=== PATIENT | male | born 1960 | race Caucasian/White ===

== ENCOUNTER 2020-05-13 13:35 | Day surgery (SDC) | payer BC ==
[~2020-05-13 13:35] MED LIST: DIPRIVAN 200 MG/20 ML IV ONE; Ketamine HCl 50 MG/ML ONE
[2020-05-13] MEDS ORDERED: Depo-Medrol 40 MG/ML IM ONE (13:36)
[2020-05-13] MEDS ORDERED: Marcaine 0.5% SDV 10 ML IJ ONE (13:36)
--- NOTE | 2020-05-13 16:23 | XRAY ---
Indication: Right SI joint injection. Intraoperative fluoroscopy was provided for 9 seconds. 2 digital spot images submitted for interpretation demonstrates posterior needle tip projecting over the inferior right SI joint. Correlate with intraoperative findings/report.
[2020-05-13] MEDS ORDERED: Lactated Ringers 1,000 ML IV ONE (16:38)
--- NOTE | 2020-05-13 16:39 | XRAY ---
9 seconds fluoroscopy time in surgery for right SI joint injection.
== END 2020-05-13 15:11 | disposition home or self-care (01) ==
LOC: SDC-PAIN 13:35
PROVIDERS: ATTEND Psychiatry & Neurology Pain Medicine
DX: M46.1 Sacroiliitis, not elsewhere classified (principal); I10 Essential (primary) hypertension; G47.30 Sleep apnea, unspecified; Z79.899 Other long term (current) drug therapy
CPT/HCPCS: 64451; 72020; 77002; J1030; J2704

== ENCOUNTER 2020-10-28 10:49 | Day surgery (SDC) | payer BC ==
[2020-10-28] MEDS ORDERED: LIDOCAINE HCL 2% 100 MG/5 ML IJ ONE (10:50)
[2020-10-28] MEDS ORDERED: Depo-Medrol 40 MG/ML IM ONE (10:50)
[2020-10-28] MEDS ORDERED: Ketamine HCl 50 MG/ML ONE (11:47)
[2020-10-28] MEDS ORDERED: DIPRIVAN 200 MG/20 ML IV ONE (11:47)
--- NOTE | 2020-10-28 12:59 | XRAY ---
Indication: Bilateral L4-S1 MBB. Intraoperative fluoroscopy was provided for 11 seconds. Single digital spot image submitted for interpretation demonstrates posterior needle tips projecting over the expected left and right L4-S1 nerve roots. Correlate with intraoperative findings/report.
--- NOTE | 2020-10-28 13:01 | XRAY ---
11 seconds fluoroscopy rime in surgery for bilateral L4-S1 MBB.
[2020-10-28] MEDS ORDERED: Lactated Ringers 1,000 ML IV ONE (16:05)
== END 2020-10-28 12:16 | disposition home or self-care (01) ==
LOC: SDC-PAIN 10:49
PROVIDERS: ATTEND Psychiatry & Neurology Pain Medicine
DX: M47.816 Spondylosis without myelopathy or radiculopathy, lumbar region (principal); I10 Essential (primary) hypertension; G47.30 Sleep apnea, unspecified; Z79.899 Other long term (current) drug therapy
CPT/HCPCS: 64493; 64494; 72020; 77002; J1030; J2704

== ENCOUNTER 2020-12-30 07:34 | Day surgery (SDC) | payer BC ==
[2020-12-30] MEDS ORDERED: Depo-Medrol 40 MG/ML IM ONE (07:35)
[2020-12-30] MEDS ORDERED: BUPIVACAINE 0.5% VIAL IJ ONE (07:35)
[2020-12-30] MEDS ORDERED: DIPRIVAN 200 MG/20 ML IV ONE (10:06)
[2020-12-30] MEDS ORDERED: Ketamine HCl 50 MG/ML ONE (10:06)
[2020-12-30] MEDS ORDERED: Lactated Ringers 1,000 ML IV ONE (11:00)
--- NOTE | 2020-12-30 11:45 | XRAY ---
Indication: Bilateral L4-S1 MBB. Intraoperative fluoroscopy provided for 37 seconds. Single digital spot image submitted for interpretation demonstrates posterior needle tips projecting over the expected left and right L4-S1 nerve roots. Correlate with intraoperative findings/report.
--- NOTE | 2020-12-30 11:49 | XRAY ---
37 seconds fluoroscopy time in surgery for bilateral L4-S1 MBB.
== END 2020-12-30 10:37 | disposition home or self-care (01) ==
LOC: SDC-PAIN 07:34
PROVIDERS: ATTEND Psychiatry & Neurology Pain Medicine
DX: M47.816 Spondylosis without myelopathy or radiculopathy, lumbar region (principal); I10 Essential (primary) hypertension; G47.30 Sleep apnea, unspecified; Z79.899 Other long term (current) drug therapy
CPT/HCPCS: 64493; 64494; 72020; 77002; 82947; J1030; J2704

== ENCOUNTER 2021-02-24 14:21 | Day surgery (SDC) | payer BC ==
[2021-02-24] MEDS ORDERED: Depo-Medrol 40 MG/ML IM ONE (14:22)
[2021-02-24] MEDS ORDERED: BUPIVACAINE 0.5% VIAL IJ ONE (14:22)
[2021-02-24] MEDS ORDERED: DIPRIVAN 200 MG/20 ML IV ONE (15:52)
[2021-02-24] MEDS ORDERED: Lactated Ringers 1,000 ML IV ONE (16:14)
--- NOTE | 2021-02-24 16:44 | XRAY ---
Indication: Right SI joint injection. Intraoperative fluoroscopy provided for 13 seconds. Single lateral digital spot image submitted for interpretation demonstrates posterior needle tip projecting mid sacral level. Correlate with intraoperative findings/report.
--- NOTE | 2021-02-24 16:48 | XRAY ---
13 seconds fluoroscopy time in surgery for injection of the right SI joint.
== END 2021-02-24 16:16 | disposition home or self-care (01) ==
LOC: SDC-PAIN 14:21
PROVIDERS: ATTEND Psychiatry & Neurology Pain Medicine
DX: M46.1 Sacroiliitis, not elsewhere classified (principal); I10 Essential (primary) hypertension; G47.30 Sleep apnea, unspecified; Z79.899 Other long term (current) drug therapy
CPT/HCPCS: 27096; 72202; 77002; J1030; J2704; G0260

== ENCOUNTER 2021-04-21 11:46 | Day surgery (SDC) | payer BC ==
[2021-04-21] MEDS ORDERED: Depo-Medrol 40 MG/ML IM ONE (11:47)
[2021-04-21] MEDS ORDERED: BUPIVACAINE 0.5% VIAL IJ ONE (11:47)
[2021-04-21] MEDS ORDERED: Xylocaine 1% Vial 30 ML PF IJ ONE (11:47)
[2021-04-21] MEDS ORDERED: DIPRIVAN 200 MG/20 ML IV ONE (13:35)
--- NOTE | 2021-04-21 14:15 | XRAY ---
Indication: Right L4-S1 RFA. Intraoperative fluoroscopy provided for 19 seconds. 3 digital spot image submitted for interpretation demonstrate posterior needle tips projecting over the expected right L4-S1 nerve roots. Correlate with intraoperative findings/report.
--- NOTE | 2021-04-21 15:12 | XRAY ---
19 seconds of fluoroscopy was used in surgery for a right L4-L5 and L5-S1 RFA.
[2021-04-21] MEDS ORDERED: Lactated Ringers 1,000 ML IV ONE (15:42)
== END 2021-04-21 14:06 | disposition home or self-care (01) ==
LOC: SDC-PAIN 11:46
PROVIDERS: ATTEND Psychiatry & Neurology Pain Medicine
DX: M47.816 Spondylosis without myelopathy or radiculopathy, lumbar region (principal); I10 Essential (primary) hypertension; G47.30 Sleep apnea, unspecified; F41.9 Anxiety disorder, unspecified; F32.9 Major depressive disorder, single episode, unspecified; M19.90 Unspecified osteoarthritis, unspecified site; Z79.899 Other long term (current) drug therapy
CPT/HCPCS: 64635; 64636; 72100; 77002; J1030; J2001; J2704

== ENCOUNTER 2022-05-11 15:14 | Day surgery (SDC) | payer BC ==
[2022-05-11] MEDS ORDERED: XYLOCAINE-MPF 1% 5ML SDV IJ ONE (15:15)
[2022-05-11] MEDS ORDERED: SYNVISC 16 MG/2 ML SYRINGE IU ONE (15:15)
--- NOTE | 2022-05-12 18:32 | XRAY ---
12 seconds of fluoroscopy was used in surgery for a right knee intra-articular injection.
--- NOTE | 2022-05-13 15:38 | XRAY ---
Indication: Right intra-articular knee injection. Intraoperative fluoroscopy provided for 12 seconds. Single spot image submitted for interpetation demonstrates needle tip projecting over the right intercondylar notch. Small amount of contrast injected for needle tip placement. Correlate with intraoperative findings/report.
== END 2022-05-11 17:05 | disposition home or self-care (01) ==
LOC: SDC-PAIN 15:14
PROVIDERS: ATTEND Psychiatry & Neurology Pain Medicine
DX: M17.11 Unilateral primary osteoarthritis, right knee (principal); Z79.899 Other long term (current) drug therapy
CPT/HCPCS: 20610; 73560; 77002; J7325; Q9966

== ENCOUNTER 2022-05-18 15:15 | Day surgery (SDC) | payer BC ==
[2022-05-18] MEDS ORDERED: XYLOCAINE-MPF 1% 5ML SDV IJ ONE (15:16)
[2022-05-18] MEDS ORDERED: SYNVISC 16 MG/2 ML SYRINGE IU ONE (15:16)
--- NOTE | 2022-05-18 19:57 | XRAY ---
Indication: Right knee injection. Intraoperative fluoroscopy provided for 5 seconds. Single digital spot image submitted for interpretation demonstrates needle tip projecting over the right femur intercondylar notch. Small amount of contrast injected for needle tip placement. Correlate with intraoperative findings/report.
--- NOTE | 2022-05-19 09:21 | XRAY ---
5 seconds of fluoroscopy was used in surgery for a right knee intra-articular injection.
== END 2022-05-18 18:05 | disposition home or self-care (01) ==
LOC: SDC-PAIN 15:15
PROVIDERS: ATTEND Psychiatry & Neurology Pain Medicine
DX: M17.11 Unilateral primary osteoarthritis, right knee (principal); Z79.899 Other long term (current) drug therapy
CPT/HCPCS: 20610; 73560; 77002; J7325; Q9966

== ENCOUNTER 2022-05-25 15:13 | Day surgery (SDC) | payer BC ==
[2022-05-25] MEDS ORDERED: SYNVISC 16 MG/2 ML SYRINGE IU ONE (15:14)
[2022-05-25] MEDS ORDERED: XYLOCAINE-MPF 1% 5ML SDV IJ ONE (15:14)
--- NOTE | 2022-05-25 20:15 | XRAY ---
Indication: Right knee injection. Intraoperative fluoroscopy provided for 9 seconds. Single digital spot image submitted for interpretation demonstrates needle tip projecting over the right femur intercondylar notch. Small amount of contrast injected for needle tip placement. Correlate with intraoperative findings/report.
--- NOTE | 2022-05-26 08:46 | XRAY ---
9 seconds of fluoroscopy was used in surgery for an intra-articular injection of the right knee.
== END 2022-05-25 17:30 | disposition home or self-care (01) ==
LOC: SDC-PAIN 15:13
PROVIDERS: ATTEND Psychiatry & Neurology Pain Medicine
DX: M17.11 Unilateral primary osteoarthritis, right knee (principal); Z79.899 Other long term (current) drug therapy
CPT/HCPCS: 20610; 73560; 77002; J7325; Q9966

== ENCOUNTER 2023-07-03 08:49 | Day surgery (SDC) | payer OTHER ==
[~2023-07-03 08:49] MED LIST changes: -DIPRIVAN 200 MG/20 ML IV ONE; -Ketamine HCl 50 MG/ML ONE; +Lactated Ringers 1,000 ML IV ONE; +Lactated Ringers 1,000 ML IV SCH; +Sensorcaine 0.25% 10 ML ONE
[2023-07-03] MEDS ORDERED: Lactated Ringers 1,000 ML IV ONE (08:50)
[2023-07-03] MEDS ORDERED: MEFOXIN 2 GM PREMIX** 2 GM/50 ML ML IV SCH (09:00)
[2023-07-03 09:34] VITALS: O2SAT 97
--- NOTE | 2023-07-03 09:42 | HP ---
PROCEDURE DATE: 07/03/2023 HISTORY OF PRESENT ILLNESS: 63 year-old with some epigastric pain. Ultrasound showed question of gallstones. No upper endoscopy in the past. No nausea, vomiting, or diarrhea. Colonoscopy years ago. PAST MEDICAL HISTORY: Hypertension, arthritis, heartburn, reflux. CURRENT MEDICATIONS: Pantoprazole, Hydrocodone, Losartan, Mounjaro. ALLERGIES: NKDA. PAST SURGICAL HISTORY: Had back surgery, appendectomy. FAMILY HISTORY: Breast cancer, lung cancer. SOCIAL HISTORY: No smoking. No alcohol abuse. REVIEW OF SYSTEMS: 14 systems reviewed. No chest pain or palpitations. Other systems negative or noncontributory other than above and per preadmission questionnaire. PHYSICAL EXAMINATION: BMI 41. Height 5' 8". GENERAL: No acute distress. HEENT: Sclerae nonicteric. EOM intact. Oral mucosal membranes moist. NECK: No JVD. CHEST: Equal excursion. Nonlabored breathing. CVS: Regular rate and rhythm. ABDOMEN: Soft. Mild tenderness of epigastrium. Obese. EXTREMITIES: No significant edema. NEURO: Alert and oriented, moving extremities symmetrically. PSYCH: Appropriate mood and affect. SKIN: Dry. IMPRESSION: 1. UPPER ABDOMINAL PAIN. NAUSEA ALL THE TIME. RADIOLOGY FEELS THE PATIENT HAS GALLSTONES. QUESTION OF ACUTE EXACERBATION OF CHRONIC CHOLECYSTITIS, POSSIBLE CHOLELITHIASIS. Discussed options of cholecystectomy. Patient prefers to go ahead and proceed with cholecystectomy. If no improvement, he would consider upper endoscopy at a later date. Shown the risk sheet. Explained the procedure in detail, including but not limited to, bleeding; infection; risk of bowel injury or perforation; risk of trocar injury or hernia; risk of bowel, bladder, or blood vessel injury; risk of bile leak, bile duct injury, or retained stone or sludge possibly requiring further procedures either open or endoscopic retrograde cholangiopancreatography; general risk of anesthesia, deep vein thrombosis, pulmonary embolism, or pneumonia; perioperative risks of aches, pains, bloating, constipation and/or loose stools possibly chronic in nature; possibility of no improvement in preoperative symptoms possibly requiring further work-up or other studies or endoscopy or other referrals. Otherwise, will continue medications for his hypertension, back problems, arthritis. Will proceed with laparoscopic cholecystectomy, possible open as an outpatient.
[2023-07-03 09:50] LABS: Hemoglobin 14.9 g/dL (12.5-18.0); Mean Cell Volume 91.3 fL (78-100); Mean Corpuscular Hemoglobin 29.6 pg (26-32); Mean Corpuscular Hgb Concent. 32.4 g/dL (32-36); Mean Platelet Volume 10.3 fL (7.5-11.0); Platelet Count 218 x10^3/uL (150-450); Red Blood Count 5.04 x10^6/uL (4.1-5.6); Red Cell Distribution Width 14.1 % (11.5-14.0); White Blood Count 5.7 x10^3/uL (4.0-10.5)
[2023-07-03 10:03] LABS: ALBUMIN 4.1 g/dL (3.5-5.0); ALKALINE PHOSPHATASE 101 U/L (38-126); ANION GAP 13.5 MEQ/L (5-15); BLOOD UREA NITROGEN 13 mg/dL (9-20); CHLORIDE 106 mmol/L (98-107); Calcium 8.7 mg/dL (8.4-10.2); Carbon Dioxide 24 mmol/L (22-30); Creatinine 1 0.79 mg/dL (0.66-1.25); EST GLOMERULAR FILTRATION RATE > 60.0 ML/MIN; Glucose 97 mg/dL (74-106); SGOT/AST 54 U/L (17-59); SGPT/ALT 62 U/L (0-50); SODIUM 140 mmol/L (137-145); Total Protein 7.2 g/dL (6.3-8.2)
[2023-07-03] MEDS ORDERED: Quelicin Fliptop 200 MG/10 ML ONE (10:55)
[2023-07-03] MEDS ORDERED: Zemuron 100 MG/10 ML ONE (10:55)
[2023-07-03] MEDS ORDERED: SUBLIMAZE 100 MCG/2 ML ONE ×3 (10:55→12:59)
[2023-07-03] MEDS ORDERED: Versed 2 MG/2 ML Injection ONE (10:55)
[2023-07-03] MEDS ORDERED: DIPRIVAN 200 MG/20 ML IV ONE (10:55)
[2023-07-03] MEDS ORDERED: Zofran 4 MG/2 ML VIAL ONE (12:06)
[2023-07-03] MEDS ORDERED: BRIDION 200MG/2ML IV ONE (12:06)
[2023-07-03] MEDS ORDERED: TORAdol 30 mg Injection ONE (12:06)
[2023-07-03] MEDS ORDERED: TRANDATE 20 MG/4 ML SYRINGE IV ONE (13:14)
[2023-07-03 14:12] VITALS: RESP 16; TEMP 97.9
[2023-07-03 14:26] VITALS: BP 162/88; PULSE 69
--- NOTE | 2023-07-03 15:59 | OP ---
SURGERY DATE: 06/30/2023 SURGERY TIME: 1117 PREOPERATIVE DIAGNOSIS: 1. ACUTE EXACERBATION OF CHRONIC CHOLECYSTITIS, POSSIBLE SLUDGE OR STONES PER RADIOLOGIST. POSTOPERATIVE DIAGNOSIS: 1. ACUTE EXACERBATION OF CHRONIC CHOLECYSTITIS, POSSIBLE SLUDGE OR STONES PER RADIOLOGIST, PATHOLOGY PENDING. PROCEDURE: 1. Laparoscopic cholecystectomy. SURGEON: Dr. Amarjit Herring. ANESTHESIA: General. ESTIMATED BLOOD LOSS: Minimal. INDICATIONS: As noted above. Risks and benefits explained in detail, but not limited to. Consent obtained. DESCRIPTION OF PROCEDURE AND FINDINGS: The patient was taken to the OR. General anesthesia was induced. The abdomen was prepped and draped in the usual sterile fashion. After official time-out, no disagreement in planned procedure. Transverse incision made at the supraumbilical area. Fascia grasped and pulled upward. Veress needle inserted. Tested with saline. Pneumoperitoneum accomplished insufflating from an opening pressure of 0-15. 5 mm bladeless port and camera inserted without difficulty followed by two 5 mm right upper quadrant ports and 11 mm epigastric port. There was no evidence of any intraabdominal injury secondary to trocar insertion. The patient had some mild chronic inflammatory reaction around the gallbladder. It was carefully elevate up above the liver. He had a fatty infiltrated liver. Dissection carried from posterolateral to anterior fashion. Had extensive chronic inflammation, but slowly, carefully, the cystic duct/infundibular junction slowly, carefully well skeletonized until the critical view was obtained both anteriorly and posteriorly. Once this was accomplished, cystic duct clipped X 3 and divided in the usual fashion. The gallbladder was slowly, carefully dissected free from its chronic inflammatory reaction in the liver bed staying directly on the gallbladder wall clipping additional oozing side branches off the cystic artery/cystic vein directly on the gallbladder wall as necessary. Two pulsatile branches of the main cystic artery were clipped as well as additional oozing side branches off the cystic vein/cystic artery branches directly on the gallbladder wall. The gallbladder slowly, carefully dissected free. Just prior to releasing the final attachments, one of the graspers tore a small hole in the gallbladder spilling a small amount of bile. There was no visible stone spillage. The gallbladder was sucked out. Continued the dissection staying directly on the gallbladder wall. Just prior to releasing the final attachments to the anterior liver, the liver bed reinspected. Clips noted to be in place in the cystic duct/cystic artery stumps. No signs of any active bleeding or bile leakage from the liver bed itself. The gallbladder was released from the final attachments to the anterior liver, placed in a divided sack and pulled free out the epigastric wound and passed off. A copious amount of irrigation accomplished lateral to the liver and subhepatic space irrigating clear. The liver bed reinspected. Clips noted to be in place in cystic duct/cystic artery stumps. No signs of any active bleeding or bile leakage. [place] there was no benefit of drain placement. Pneumoperitoneum decompressed. The 10/11 sites closed with puncture closure device and #1 Vicryl. Pneumoperitoneum decompressed. Wounds irrigated out. Skin incision closed with 4-0 Vicryl. 0.25% Marcaine local injected along each skin incision and fascial defect. The patient tolerated the procedure well. There were no immediate complications. Findings were discussed with the family out in the waiting area.
== END 2023-07-03 14:30 | disposition home or self-care (01) ==
LOC: SDC 08:49
PROVIDERS: ATTEND Surgery
DX: K81.2 Acute cholecystitis with chronic cholecystitis (principal); I10 Essential (primary) hypertension; Z80.3 Family history of malignant neoplasm of breast; Z80.1 Family history of malignant neoplasm of trachea, bronchus and lung
CPT/HCPCS: 36415; 80053; 85027; 93005; J0330; J0694; J1885; J2250; J2405; J2704; J3010

== ENCOUNTER 2023-10-26 09:20 | Day surgery (SDC) | payer OTHER ==
[2023-10-26] MEDS ORDERED: Depo-Medrol 40 MG/ML IM ONE (09:21)
[2023-10-26] MEDS ORDERED: XYLOCAINE-MPF 1% 5ML SDV IJ ONE (09:21)
[2023-10-26] MEDS ORDERED: BUPIVACAINE 0.5% VIAL IJ ONE (09:21)
[2023-10-26] MEDS ORDERED: DIPRIVAN 200 MG/20 ML IV ONE (12:09)
--- NOTE | 2023-10-26 13:34 | XRAY ---
Indication: Right L4-S1 RFA. Intraoperative fluoroscopy provided for 24 seconds. 4 digital spot images submitted for interpretation demonstrates posterior needle tips projecting over the expected right L4-S1 nerve roots. Correlate with intraoperative findings/report.
--- NOTE | 2023-10-26 14:30 | XRAY ---
24 seconds of fluoroscopy was used in surgery for a right L4-S1 RFA.
[2023-10-26] MEDS ORDERED: Lactated Ringers 1,000 ML IV ONE (16:22)
== END 2023-10-26 12:40 | disposition home or self-care (01) ==
LOC: SDC-PAIN 09:20
PROVIDERS: ATTEND Psychiatry & Neurology Pain Medicine
DX: M47.816 Spondylosis without myelopathy or radiculopathy, lumbar region (principal); Z79.899 Other long term (current) drug therapy
CPT/HCPCS: 64635; 64636; 72100; 77002; J1030; J2704

== ENCOUNTER 2024-03-18 08:29 | Day surgery (SDC) | payer OTHER ==
[2024-03-18] MEDS ORDERED: Lactated Ringers 1,000 ML IV ONE ×2 (08:45→11:19)
[2024-03-18] MEDS: Lactated Ringers 1,000 ML IV SCH (08:50)
[2024-03-18 08:55] VITALS: RESP 18
--- NOTE | 2024-03-18 09:19 | HP ---
DATE OF SURGERY: 03/18/2024 HISTORY OF PRESENT ILLNESS: The patient is a 64-year-old with nausea, no vomiting. Upper abdominal discomfort, some problems in the past. No bloody stool. Last colonoscopy several years ago. No EGD in the past. Family history of grandmother with colon cancer and stomach cancer. Some lower abdominal aches at times, occasional left at times. PAST MEDICAL HISTORY: Anxiety, diabetes mellitus type II, depression, heartburn, reflux, arthritis, hypertension. PAST SURGICAL HISTORY: Cholecystectomy. Back surgery. Appendectomy. MEDICATIONS: Pantoprazole, phentermine, buspirone, hydrocodone, losartan, Mounjaro. ALLERGIES: NKDA. FAMILY HISTORY: Breast cancer, lung cancer. Grandmother with colon cancer and stomach cancer. SOCIAL HISTORY: No smoking or alcohol abuse. REVIEW OF SYSTEMS: Twelve systems reviewed. No chest pain or palpitations. Other systems negative or noncontributory as above and per preadmission questionnaire. PHYSICAL EXAMINATION: Height 5 feet 8 inches. BMI 44. GENERAL: No acute distress. HEENT: Sclerae nonicteric. EOMI. Oral mucous membranes moist. NECK: No JVD. CHEST: Equal excursion, nonlabored breathing. CVS: Regular rate and rhythm. ABDOMEN: Soft, obese, mild tenderness upper abdomen. EXTREMITIES: No cyanosis or edema. NEURO: Alert, oriented, moving extremities symmetrically. RECTAL: Deferred timed to endoscopy exam. PSYCH: Appropriate mood and affect. SKIN: Dry. IMPRESSION: Abdominal pain, nausea, needs EGD and colonoscopy to evaluate for peptic ulcer disease, gastritis, colitis, celiac disease, inflammatory bowel disease or neoplasia. He was shown the risk sheet, explained the procedure in detail including but not limited to bleeding or infection, risk of bowel injury or perforation, risk of missed or nondiagnosis or incomplete exam possibly requiring barium enema, other studies or procedures. If negative may need CT, further work up. Continue medication for anxiety, diabetes, hypertension, reflux and arthritis. Otherwise, will proceed with outpatient EGD and colonoscopy with MAC anesthesia.
[2024-03-18 09:23] LABS: ISTAT CREA 1.1 mg/dL (0.6-1.3); ISTAT K 3.4 mmol/L (3.5-4.9); ISTAT iCA 1.13 mmol/L (1.12-1.32)
[2024-03-18] MEDS ORDERED: Xylocaine-Mpf 2% 5 Ml Vial ONE (10:41)
[2024-03-18] MEDS ORDERED: DIPRIVAN 200 MG/20 ML IV ONE ×3 (10:41→11:14)
[2024-03-18 11:53] VITALS: TEMP 97.6
[2024-03-18 12:06] VITALS: BP 158/75; PULSE 71; O2SAT 99
--- NOTE | 2024-03-19 11:16 | OP ---
SURGERY DATE/TIME: 02/17/2024 1048 PREOPERATIVE DIAGNOSES: 1) History of some abdominal pain unclear etiology, family history of colon cancer, need for upper and lower endoscopy. 2) ASA Class 3. POSTOPERATIVE DIAGNOSES: 1) Mild gastritis. 2) Mild erythema distal esophagus. No gross erosions or ulcers. 3) Diverticulosis left colon. 4) Polyps ascending colon, transverse colon, sigmoid colon, largest 1 cm proximal sigmoid colon polyp. PROCEDURES: 1) EGD with cold biopsy of small bowel to evaluate for celiac sprue. 2) Cold biopsy of antrum to evaluate for Helicobacter pylori. 3) Cold biopsy distal esophagus. 4) Colonoscopy to cecum with hot snare polypectomy, 1 cm sigmoid colon polyp with ink spot tattooing of location. 5) Hot biopsy polypectomy small polyps versus hyperplastic lesion ascending colon x1, transverse colon as well as two additional small early polyps versus hyperplastic lesion sigmoid colon x2. SURGEON: Dr. Amarjit Herring. ANESTHESIA: MAC. QUANTITATIVE BLOOD LOSS: Minimal. INDICATIONS: As noted above. Risks and benefits explained in detail and not limited to and consent obtained. DESCRIPTION OF PROCEDURE AND FINDINGS: The patient is taken to the operating room. MAC anesthesia introduced. After official time out and no disagreement with planned procedure, bite block positioned. Video gastroscope easily passed down the esophagus to the patent pylorus to the junction of the third and fourth portion of the duodenum. Duodenum grossly unremarkable. Cold biopsy taken to evaluate for celiac disease. Good hemostasis noted. The scope pulled back into the stomach had some mild gastric erythema and some mild gastritis. Cold biopsy taken to evaluate for Helicobacter pylori. Good hemostasis noted. On retroflex the gastroesophageal junction fairly snug against the scope. The scope straightened. Gastroesophageal junction was about 40 cm, mild distal esophageal erythema. Cold biopsy taken to evaluate for path. No signs of any erosions or masses. The remainder of the esophagus grossly unremarkable. The scope is withdrawn. Attention then turned to colonoscopy. On digital rectal exam he did have some internal and external hemorrhoids and some little skin tags from external hemorrhoids in the past. These were all soft. No gross evidence of any gross mass at this point. No palpable mass. Video colonoscope inserted and passed up to the tortuous sigmoid, descending, transverse, ascending colon. With external pressure, the scope passed through the cecum. Appendiceal orifice and valve well visualized and photo documented. Prep overall was on the fair limited side. He had some vegetable matter in there, some leaky type material limiting the exam for small lesions this is suctioned and irrigated as clear as possible. The scope is slowly and carefully withdrawn. Small early polyp versus hyperplastic lesion in ascending colon, transverse colon. Two small ones in the sigmoid colon removed with hot biopsy polypectomy. There was one polyp it was about 1 cm in size maybe just smaller than 1 cm. It was pedunculated on a stalk that was removed with hot snare polypectomy and 1 cc of ink spot tattoo was injected at the base to buddy the location. Otherwise, the patient had a few small diverticula in the left colon. He had internal and external hemorrhoids. No signs of any large masses or obstructing lesions. Again, the prep was only fair limited with liquidy semisolid stool throughout the colon. There were no immediate complications. Findings discussed with family out in the waiting area.
== END 2024-03-18 12:12 | disposition home or self-care (01) ==
LOC: SDC 08:29
PROVIDERS: ATTEND Surgery
DX: D12.2 Benign neoplasm of ascending colon (principal); D12.5 Benign neoplasm of sigmoid colon; D12.3 Benign neoplasm of transverse colon; R10.9 Unspecified abdominal pain; Z80.0 Family history of malignant neoplasm of digestive organs; K29.70 Gastritis, unspecified, without bleeding; K20.90 Esophagitis, unspecified without bleeding; K57.30 Diverticulosis of large intestine without perforation or abscess without bleeding; Z80.3 Family history of malignant neoplasm of breast; Z80.1 Family history of malignant neoplasm of trachea, bronchus and lung; K64.4 Residual hemorrhoidal skin tags; K64.8 Other hemorrhoids
CPT/HCPCS: 36415; 80047; 93005; J2704

== ENCOUNTER 2024-04-03 10:12 | Day surgery (SDC) | payer OTHER ==
[2024-04-03] MEDS ORDERED: XYLOCAINE-MPF 1% 5ML SDV IJ ONE (10:13)
[2024-04-03] MEDS ORDERED: Decadron 4 MG INJ IV ONE (10:13)
[2024-04-03] MEDS ORDERED: Lactated Ringers 1,000 ML IV ONE (11:17)
[2024-04-03] MEDS ORDERED: DIPRIVAN 200 MG/20 ML IV ONE (11:42)
--- NOTE | 2024-04-03 12:54 | XRAY ---
Indication: Right piriformis injection. Intraoperative fluoroscopy provided 11 seconds. Single digital spot image submitted for interpretation demonstrates posterior needle tip projecting over the expected right piriformis. Small amount of contrast injected for needle tip placement. Correlate with intraoperative findings/report.
--- NOTE | 2024-04-04 09:49 | XRAY ---
11 seconds of fluoroscopy was used in surgery for a right piriformis injection.
== END 2024-04-03 12:10 | disposition home or self-care (01) ==
LOC: SDC-PAIN 10:12
PROVIDERS: ATTEND Psychiatry & Neurology Pain Medicine
DX: M79.18 Myalgia, other site (principal)
CPT/HCPCS: 20552; 72170; 77002; J1100; J2704; Q9966